=== PATIENT | male | born 1990 | race Two or more races ===

== ENCOUNTER 2019-03-25 20:21 | Inpatient (IN) | payer OTHER ==
[~2019-03-25] VITALS: Ht 175.3 cm; Wt 74.8 kg
[2019-03-25] MEDS ORDERED: TORADOL60 MG/2 ML IM (20:25)
--- NOTE | 2019-03-25 20:35 | NUR ---
ED Nurse Note: pt brought in by [facility] c/c left flank pain for one week, pt states he is traveling [facility] and was dx kidney stone prior to coming to us. pt vss, ambulatory w/ steady gait, reports nausea and 1x vomiting episode, will contm onitor.
[2019-03-25 20:38] VITALS: BP 128/80
--- NOTE | 2019-03-25 20:44 | Emergency Room Report ---
History of Present Illness General Chief Complaint: Back Pain-No Injury Source: Patient Present Illness HPI 28-year-old male recently diagnosed with kidney stones 5 days prior to arrival presents with 5 days of left flank pain, no aggravating factors, alleviated with Toradol shot, nausea, no vomiting, no fever no chills, no dysuria, patient endorses pain that lasted minutes to hours, patient presents for evaluation via EMS Allergies: Coded Allergies: No Known Allergies (Unverified , 03/25/19) Patient History Past Medical History: see triage record Reviewed Nursing Documentation: PMH: Agreed; PSxH: Agreed Nursing Documentation-PMH Past Medical History: No History, Except For Review of Systems Gastrointestinal: Reports: abdominal pain All Other Systems: negative except mentioned in HPI Physical Exam Vital Signs Date Time Temp Pulse Resp B/P (MAP) Pulse Ox O2 Delivery O2 Flow Rate FiO2 03/25/19 20:21 98.4 60 14 135/82 (99) 98 Room Air Sp02 EP Interpretation: reviewed, normal General Appearance: well appearing, no apparent distress, alert Head: normocephalic, atraumatic Eyes: bilateral eye PERRL, bilateral eye EOMI ENT: uvula midline, moist mucus membranes Neck: supple, thyroid normal, supple/symm/no masses Respiratory: lungs clear, no respiratory distress, no retraction, no accessory muscle use Cardiovascular #1: normal peripheral pulses, regular rate, rhythm, no edema, no gallop, no murmur Gastrointestinal: non tender, soft, no guarding, no rebound Musculoskeletal: normal inspection Neurologic: alert, oriented x3 Psychiatric: mood/affect normal Skin: no rash, warm/dry Medical Decision Making Diagnostic Impression: Primary Impression: Ureterolithiasis Additional Impression: MAGALI (acute kidney injury) ER Course 28-year-old male presents with left flank pain, consistent with ureterolithiasis , low suspicion for dissection, low suspicion for AAA, patient given morphine, fluids, potassium repletion, patient was medically complex, Patient given fluids, antibiotics, patient will be admitted, urology was notified, patient admitted to Dr. Spivey Laboratory Tests Test 03/25/19 20:31 03/25/19 21:45 White Blood Count 14.6 K/UL (4.8-10.8) H Red Blood Count 5.07 M/UL (4.70-6.10) Hemoglobin 15.8 G/DL (14.2-18.0) Hematocrit 43.7 % (42.0-52.0) Mean Corpuscular Volume 86 FL (80-99) Mean Corpuscular Hemoglobin 31.2 PG (27.0-31.0) H Mean Corpuscular Hemoglobin Concent 36.2 G/DL (32.0-36.0) H Red Cell Distribution Width 9.6 % (11.6-14.8) L Platelet Count 306 K/UL (150-450) Mean Platelet Volume 6.7 FL (6.5-10.1) Neutrophils (%) (Auto) 66.6 % (45.0-75.0) Lymphocytes (%) (Auto) 22.2 % (20.0-45.0) Monocytes (%) (Auto) 9.7 % (1.0-10.0) Eosinophils (%) (Auto) 0.6 % (0.0-3.0) Basophils (%) (Auto) 0.9 % (0.0-2.0) Sodium Level 139 MMOL/L (136-145) Potassium Level 3.0 MMOL/L (3.5-5.1) L Chloride Level 102 MMOL/L (98-107) Carbon Dioxide Level 24 MMOL/L (21-32) Anion Gap 13 mmol/L (5-15) Blood Urea Nitrogen 23 mg/dL (7-18) H Creatinine 1.7 MG/DL (0.55-1.30) H Estimate Glomerular Filtration Rate 48.6 mL/min (>60) Glucose Level 113 MG/DL (74-106) H Calcium Level 9.9 MG/DL (8.5-10.1) Total Bilirubin 1.9 MG/DL (0.2-1.0) H Direct Bilirubin 0.3 MG/DL (0.0-0.3) Aspartate Amino Transferase (AST) 16 U/L (15-37) Alanine Aminotransferase (ALT) 16 U/L (12-78) Alkaline Phosphatase 74 U/L (46-116) Total Protein 7.4 G/DL (6.4-8.2) Albumin 4.9 G/DL (3.4-5.0) Globulin 2.5 g/dL Albumin/Globulin Ratio 2.0 (1.0-2.7) Lipase 94 U/L (73-393) Urine Color Brown Urine Appearance Clear Urine pH 5 (4.5-8.0) Urine Specific [place] 1.025 (1.005-1.035) Urine Protein 2+ (NEGATIVE) H Urine Glucose (UA) Negative (NEGATIVE) Urine Ketones 3+ (NEGATIVE) H Urine Blood 3+ (NEGATIVE) H Urine Nitrite Negative (NEGATIVE) Urine Bilirubin Negative (NEGATIVE) Urine Urobilinogen 4 MG/DL (0.0-1.0) H Urine Leukocyte Esterase 1+ (NEGATIVE) H Urine RBC 5-10 /HPF (0 - 0) H Urine WBC 2-4 /HPF (0 - 0) Urine Squamous Epithelial Cells None /LPF (NONE/OCC) Urine Bacteria Few /HPF (NONE) Urine Fine Granular Casts 2-4 /LPF (NONE) H CT/MRI/US Diagnostic Results CT/MRI/US Diagnostic Results : Impression Preliminary Findings Only See Final Report For Complete Findings CT ABDOMEN & PELVIS Without Contrast: There is a 4.5 mm stone lodged at the left UVJ resulting in upstream hydroureteronephrosis. No stones on the right. No acute process within the remainder of the solid organs or along the GI tract. Radiologist: Piotr Harper MD Last Vital Signs Date Time Temp Pulse Resp B/P (MAP) Pulse Ox O2 Delivery O2 Flow Rate FiO2 03/25/19 20:38 98.4 62 14 128/80 98 Room Air Disposition: ADMITTED INPATIENT Condition: Improved Referrals: [facility] Pal Gutierrez MD Mar 25, 2019 20:44
[2019-03-25] MEDS ORDERED: Morphine Sulfate 4mg/ml Inj (IV USE ONLY) IVP ONE (20:45)
[2019-03-25 20:57] LABS: ANION GAP 13 mmol/L (5-15); BLOOD UREA NITROGEN 23 mg/dL (7-18); CALCIUM 9.9 MG/DL (8.5-10.1); CARBON DIOXIDE 24 MMOL/L (21-32); CHLORIDE 102 MMOL/L (98-107); CREATININE 1.7 MG/DL (0.55-1.30); SODIUM 139 MMOL/L (136-145)
[2019-03-25 21:01] LABS: BASOPHILS % (AUTO) 0.9 % (0.0-2.0); EOSINOPHILS % (AUTO) 0.6 % (0.0-3.0); HEMATOCRIT 43.7 % (42.0-52.0); HEMOGLOBIN 15.8 G/DL (14.2-18.0); LYMPHOCYTES % (AUTO) 22.2 % (20.0-45.0); MEAN CORPUSCULAR VOLUME 86 FL (80-99); MONOCYTES % (AUTO) 9.7 % (1.0-10.0); NEUTROPHILS % (AUTO) 66.6 % (45.0-75.0); PLATELET COUNT 306 K/UL (150-450); RED BLOOD COUNT 5.07 M/UL (4.70-6.10); RED CELL DISTRIBUTION WIDTH 9.6 % (11.6-14.8); WHITE BLOOD COUNT 14.6 K/UL (4.8-10.8)
--- NOTE | 2019-03-25 21:05 | NUR ---
ED Nurse Note: pt off to CT
[2019-03-25 21:19] LABS: ALANINE AMINOTRANSFERASE 16 U/L (12-78); ALBUMIN 4.9 G/DL (3.4-5.0); ALKALINE PHOSPHATASE 74 U/L (46-116); ASPARTATE AMINO TRANSFERASE 16 U/L (15-37); BILIRUBIN,TOTAL 1.9 MG/DL (0.2-1.0)
[2019-03-25 21:29] LABS: BILIRUBIN,DIRECT 0.3 MG/DL (0.0-0.3)
--- NOTE | 2019-03-25 21:35 | NUR ---
ED Nurse Note: noted pt's lab K=3.0, ERMD notified, will wait for further orders.
--- NOTE | 2019-03-25 21:44 | Diagnostic Imaging Report ---
Indication: Abdominal pain Technique: Continuous helical transaxial imaging of the abdomen and pelvis was obtained from the lung bases to the pubic symphysis. No intravenous contrast was administered. Coronal 2-D reformats were also obtained. Automatic Exposure Control was utilized. Total Dose length Product (DLP): [address] Dose Index Volume (CTDIvol): 0.15, 11.66 mGy Comparison: none Findings: Left hydroureteronephrosis demonstrated secondary to a 5 mm stone left UVJ. Calcification in the wall the gallbladder interface with the liver noted as well as a small calcified and in the periphery of the liver. Lung bases are clear. Hiatal hernia noted. No free fluid identified. No obstructive the bowel gas pattern is identified. IMPRESSION: Mild to moderate left hydroureteronephrosis secondary to a 5 mm UVJ stone. Calcifications in the liver, nonspecific may be due to old granulomatous disease The CT scanner at [facility] is accredited by the [employer] and the scans are performed using dose optimization techniques as appropriate to a performed exam including Automatic Exposure control.
[2019-03-25] MEDS ORDERED: FLOMAX0.4 MG ORAL (21:46)
[2019-03-25] MEDS ORDERED: NORCO 5-325 TA1 EACH ORAL (21:46)
--- NOTE | 2019-03-25 21:50 | NUR ---
ED Nurse Note: urine specimen obtained and sent to lab.
[2019-03-25 21:55] LABS: APPEARANCE,URINE CLEAR; BILIRUBIN, URINE NEGATIVE (NEGATIVE); COLOR,URINE BROWN; GLUCOSE, URINE (UA) NEGATIVE (NEGATIVE); KETONES,URINE 3+ (NEGATIVE); LEUKOCYTE ESTERASE ,URINE 1+ (NEGATIVE); NITRITE,URINE NEGATIVE (NEGATIVE); PH,URINE 5 (4.5-8.0); PROTEIN,URINE 2+ (NEGATIVE); UROBILINOGEN,URINE 4 MG/DL (0.0-1.0)
--- NOTE | 2019-03-25 22:19 | NUR ---
ED Nurse Note: spoke with pt via human resource management instructor, [place] [id number] regarding pt's condition.
[2019-03-25 22:38] VITALS: BP 122/69
[2019-03-25] MEDS ORDERED: NS 55 ML IV ONE (23:04)
[2019-03-25] MEDS ORDERED: cefTRIAXone 1 GM in NS 55 ML IVPB ONE (23:15)
--- NOTE | 2019-03-25 23:40 | NUR ---
ED Nurse Note: report given to MARTINEZ Mason.
--- NOTE | 2019-03-25 23:56 | NUR ---
ED Nurse Note: [place] [facility] [place]/ [place], vss, ambulatory w/ steady gait, iv intact and patent, care endorsed to MS MARTINEZ Mason.
[2019-03-26] VITALS: BP 115/74
[2019-03-26] MEDS ORDERED: NS w/KCl 20mEq 1000ml 1,000 ML IV SCH
[2019-03-26] MEDS ORDERED: HYDROcodone/Acetamin 5/325 tab ORAL PRN
[2019-03-26 04:00] VITALS: BP 102/55
[2019-03-26] MEDS: NS w/KCl 20mEq 1000ml 1,000 ML IV SCH ×2 (05:44)
[2019-03-26 06:18] LABS: BASOPHILS % (AUTO) 0.7 % (0.0-2.0); EOSINOPHILS % (AUTO) 0.9 % (0.0-3.0); HEMATOCRIT 42.1 % (42.0-52.0); HEMOGLOBIN 14.8 G/DL (14.2-18.0); LYMPHOCYTES % (AUTO) 27.2 % (20.0-45.0); MEAN CORPUSCULAR VOLUME 90 FL (80-99); MONOCYTES % (AUTO) 9.1 % (1.0-10.0); PLATELET COUNT 273 K/UL (150-450); RED BLOOD COUNT 4.68 M/UL (4.70-6.10); RED CELL DISTRIBUTION WIDTH 10.3 % (11.6-14.8); WHITE BLOOD COUNT 9.1 K/UL (4.8-10.8)
[2019-03-26 06:58] LABS: ALANINE AMINOTRANSFERASE 12 U/L (12-78); ALBUMIN/GLOBULIN RATIO 1.5 (1.0-2.7); ALKALINE PHOSPHATASE 66 U/L (46-116); ANION GAP 8 mmol/L (5-15); ASPARTATE AMINO TRANSFERASE 17 U/L (15-37); BILIRUBIN,DIRECT 0.2 MG/DL (0.0-0.3); BILIRUBIN,TOTAL 1.7 MG/DL (0.2-1.0); BLOOD UREA NITROGEN 16 mg/dL (7-18); CALCIUM 8.9 MG/DL (8.5-10.1); CARBON DIOXIDE 27 MMOL/L (21-32); CHLORIDE 107 MMOL/L (98-107); CHOLESTEROL 118 MG/DL (< 200); CREATININE 1.3 MG/DL (0.55-1.30); HDL CHOLESTEROL 40 MG/DL (40-60); POTASSIUM 4.8 MMOL/L (3.5-5.1); SODIUM 142 MMOL/L (136-145); TRIGLYCERIDES 41 MG/DL (30-150)
--- NOTE | 2019-03-26 07:26 | NUR ---
NURSE NOTES:BEDSIDE ROUNDS WITH MIKA HIGH RN.PT.AWAKE,A/OX4,ROOM AIR,NO C/O PAIN,IV SITE PATENT.REMAINS NPO.WILL CONTINUE PLAN OF CARE.
[2019-03-26 08:00] VITALS: BP 125/71
--- NOTE | 2019-03-26 08:25 | NUR ---
NURSE NOTES:SEEN BY DR. BOWLING,ORDERS CARRIED OUT.
[2019-03-26] MEDS ORDERED: NS Irrig 1000ml ONE (09:33)
--- NOTE | 2019-03-26 11:37 | Diagnostic Imaging Report ---
Indication: Flank pain Technique: Grayscale and duplex Doppler imaging of the kidneys performed. Comparison: None Findings: There is mild left hydronephrosis. Right kidney is 10 cm. Left kidney is 10.8 cm in length. IVC and bladder are unremarkable. IMPRESSION: Left hydronephrosis
[2019-03-26 11:55] VITALS: BP 116/72
--- NOTE | 2019-03-26 12:41 | NUR ---
CHARGE NURSE NOTE: Spoke with (urologist). He will come to see a patient after 4pm. Pt notified.
--- NOTE | 2019-03-26 15:00 | History and Physical Report ---
DATE OF ADMISSION: 03/25/2019 REASON FOR ADMISSION: Flank pain due to kidney stone. HISTORY OF PRESENT ILLNESS: This is a 28-year-old male visiting from [place], who has a known history of kidney stone that was diagnosed in his left kidney prior to his trip. He was told that there was no obstruction and that it could be managed conservatively. Last evening, he developed left flank pain and came to the emergency room where imaging studies were obtained confirming ureterolithiasis. The patient was admitted for pain management and hydration. MEDICATIONS: None. PAST MEDICAL HISTORY: None. ALLERGIES: None known. SOCIAL HISTORY: Nonsmoker. No alcohol or substance abuse. FAMILY HISTORY: Noncontributory. REVIEW OF SYSTEMS: All systems negative. PHYSICAL EXAMINATION: GENERAL: In no distress. VITAL SIGNS: Blood pressure 102/55, pulse 66, respirations 18, afebrile. NECK: Supple. Jugular venous pressure normal. LUNGS: Clear. CARDIAC: Regular rhythm and rate. Normal S1, S2 with no murmur. ABDOMEN: Soft. No CVA tenderness. No guarding or rebound. EXTREMITIES: Without edema. LABORATORY AND DIAGNOSTIC DATA: White count on admission 14.6, today 9.1, hemoglobin 14.8. Potassium 4.8. Uric acid is 4. Chemistry panel otherwise entirely within normal limits and cholesterol is 118. CAT scan revealed no acute process. There was a 4.5 mm stone lodged in the left UVJ. IMPRESSION: Ureterolithiasis, clinically improved. PLAN: 1. Repeat ultrasound to evaluate for worsening . 2. Continue IV fluid hydration and empiric antimicrobials. Michael Aquino M.D. DR: AKANKSHA JOB#: [id number] CC:
--- NOTE | 2019-03-26 16:01 | NUR ---
*-* INSURANCE *-* AVAILABLE CLINICALS HAVE BEEN FAXED TO: [employer] F:[phone] P:[phone]
--- NOTE | 2019-03-26 16:15 | NUR ---
CASE MANAGEMENT:REVIEW LATE ENTRY 03/25/19 28 YR OLD MALE VISITING FROM [place] PRESENTED TO OUR ER CC: LEFT FLANK PAIN X1 DAYS SI: MAGALI. URETEROLITHIASIS 98.5 60 14 135/82 98% ON RA WBC+14.6 K-3.0 BUN+23 CR+1.7 IS: IV ZOFRAN IV PEPCID IV MORPHINE 1L NS BOLUS KCL 60MEQ IV ROCEPHIN CT ABD/PELVIS : [facility] IS: [facility] PO Q4HRS PRN 03/26/19 PLAN: DISCHARGE
[2019-03-26 16:19] VITALS: BP 119/75
--- NOTE | 2019-03-26 18:15 | NUR ---
NURSE NOTES:SPOKE WITH DR. BOWLING RE:NEEDS OFFICIAL ORDER FOR D/C,UPDATED TOO THAT DR. SINGH IS AWARE OF RENAL US,AND PT TO SEE MD TOMORROW AT 1000 AM.D/C ORDERS,EDUCATION,INCLUDING TO SEE DR. SINGH TOMORROW AT 1000 AM.AND BELONGINGS CONFIRMED WITH PT.STABLE ON DISCHARGE BY CAB.URINATING OKAY,DRINKING FLUIDS OKAY,NO C/O PAIN THE WHOLE DAY.
--- NOTE | 2019-03-26 21:07 | Discharge Summary ---
Discharge Summary Discharge Summary _ DATE OF ADMISSION: 03/25/2019 DATE OF DISCHARGE: 03/26/2019 DISCHARGED BY: REASON FOR ADMISSION: 28 years old male, visiting from [place], with known past medical history of left kidney stone, diagnosed prior, develop left flank pain and came to emergency room. Patient stated that he was told there was no obstruction , and it could be managed conservatively. Patient reported left flank pain ,no nausea, no vomiting no diarrhea. No fever, no chills. Upon evaluation vital signs were stable, no fevers. CT of the abdomen and pelvis demonstrated mild to moderate left hydroureteronephrosis secondary to a 5 mm UVJ stone. Laboratory work-up revealed mild leukocytosis WBC 14.6, hemoglobin 15.8, hematocrit 43.7. Potassium 3.0. BUN 23, creatinine 1.7. Glucose 113. Total bili 1.9, direct bili 0.3. AST 16, ALT 16. Urinalysis revealed +2 protein, +3 ketones, +3 blood, +1 leukocyte esterase, minimal pyuria and few bacteria. In ED one dose of empiric antibiotics provided along with analgesia . Patient admitted for pain management and hydration. HOSPITAL COURSE: Patient admitted to the medical surgical floor. Patient started on aggressive IV hydration. Pain management was addressed. Potassium replaced , and the next day potassium 4.8. Leukocytosis resolved the enxt day. With IV hydration, acute kidney injury resolved : BUN from 23 down to 16 , and creatinine from 1.7 down to 1.3. LFTs remained stable. Total bilirubin trended down. Renal ultrasound revealed left hydronephrosis. Supportive care provided. Pain was controlled. Patient urinated without difficulties. Acute kidney injury and hypokalemia resolved. Follow-up appointment was scheduled for the next day with the urologist. Due to rapid and unexpected improvement in patient condition, patient was discharged in 1 day. FINAL DIAGNOSES: Ureterolithiasis Hypokalemia -resolved Acute kidney injury- resolved DISCHARGE MEDICATIONS: See Medication Reconciliation list. DISCHARGE INSTRUCTIONS: Patient was discharged home. Return to ED precaution endorsed. Patient to follow-up with Dr. Flor/urologist 03/27 at 10 AM in the office. I have been assigned to dictate discharge summary for this account. I was not involved in the patient's management. Magaly Forde NP Mar 26, 2019 21:07
--- NOTE | 2019-03-27 09:41 | NUR ---
*-* INSURANCE *-* UPDATED CLINICALS AND REVIEW + DISCHARGE SUMMARY HAVE BEEN FAXED TO: [employer] F:[phone] P:[phone]
== END 2019-03-26 19:02 | disposition home or self-care (01) | DRG 694 ==
LOC: EDBD 20:21 → EMR 23:10 → 3E 23:14 → EDBEDREQ 23:41 → 3E 03-26 00:06
DX: N13.2 Hydronephrosis with renal and ureteral calculous obstruction (principal); N17.9 Acute kidney failure, unspecified; E87.6 Hypokalemia
CPT/HCPCS: 36415; 74176; 76770; 80053; 80061; 81003; 82248; 83690; 83735; 84550; 85025; 96361; 96374; 96375; 99285; J2405; J8499